=== PATIENT | female | born 1940 | race Caucasian/White ===

== ENCOUNTER 2016-11-17 09:28 | Outpatient (CLI) | payer MEDICARE ==
[~2016-11-17 09:28] MED LIST: ANAS1TAB; ASPI-495 PO; PRAV20TA PO; RISE35TA PO; VALA500T PO
[2016-11-17] MEDS ORDERED: IOHEXOL-300 100 ML VIAL IV ONE (09:36)
[2016-11-17] MEDS ORDERED: IV NS 0.9% 250 ML IV ONE (09:36)
[2016-11-17] MEDS ORDERED: CT SWABBABLE VALVE TRANS SET 1 EA INFUS.SET MC ONE (09:36)
== END 2016-11-17 23:59 | disposition home or self-care (01) ==
LOC: CT 09:28
DX: I67.2 Cerebral atherosclerosis (principal); H83.02 Labyrinthitis, left ear; M26.609 Unspecified temporomandibular joint disorder, unspecified side
CPT/HCPCS: 70470; J7050; Q9967

== ENCOUNTER 2017-04-15 15:10 | Outpatient (CLI) | payer MEDICARE | END 2017-04-15 23:59 | disposition home or self-care (01) | LOC: LAB 15:10 | PROVIDERS: ATTEND Specialist | DX: Z75.3 Unavailability and inaccessibility of health-care facilities (principal) ==

== ENCOUNTER 2017-04-17 08:50 | Outpatient (CLI) | payer MEDICARE ==
[2017-04-17] MEDS ORDERED: IV NS 0.9% 250 ML IV ONE ×2 (09:15)
[2017-04-17] MEDS ORDERED: IOHEXOL-300 100 ML VIAL IV ONE ×2 (09:15)
[2017-04-17] MEDS ORDERED: CT SWABBABLE VALVE TRANS SET 1 EA INFUS.SET MC ONE ×2 (09:15)
== END 2017-04-17 23:59 | disposition home or self-care (01) ==
LOC: CT 08:50
PROVIDERS: ATTEND Specialist
DX: J47.9 Bronchiectasis, uncomplicated (principal); R91.8 Other nonspecific abnormal finding of lung field; I70.0 Atherosclerosis of aorta; N28.9 Disorder of kidney and ureter, unspecified; M47.894 Other spondylosis, thoracic region; M48.02 Spinal stenosis, cervical region; M50.323 Other cervical disc degeneration at C6-C7 level; I65.22 Occlusion and stenosis of left carotid artery; M46.02 Spinal enthesopathy, cervical region
CPT/HCPCS: 70491; 71260; 74160; J7050 ×2; Q9967 ×2

== ENCOUNTER 2017-08-25 09:58 | Outpatient (CLI) | payer MEDICARE | END 2017-08-25 23:59 | disposition home or self-care (01) | LOC: CT 09:58 | DX: J47.9 Bronchiectasis, uncomplicated (principal); R91.8 Other nonspecific abnormal finding of lung field; I25.10 Atherosclerotic heart disease of native coronary artery without angina pectoris; E04.1 Nontoxic single thyroid nodule | CPT/HCPCS: 71250-TC ==